=== PATIENT | female | born 1940 | race Caucasian/White ===

== ENCOUNTER 2018-07-30 09:20 | Outpatient (REF) | payer MEDICARE, OTHER, SELFPAY ==
[2018-07-30 21:47] LABS: HCT 38.1 % (36.0-46.0); HGB 13.2 g/dL (12.0-15.5); Mean Corp. HGB Concentration 34.6 g/dL (32.0-36.0); Mean Corpuscular Hemoglobin 32.4 pg (27.0-33.0); Mean Corpuscular Volume 93.6 fL (80-95); Mean Platelet Volume 10.5 fL (8.0-11.0); Platelet Count 115 x1000/uL (130-400); RBC 4.07 m/cumm (4.00-5.20); RBC Distribution Width 13.2 % (11.7-14.6); White Blood Cell Count 15.26 k/cumm (4.4-10.8)
[2018-07-30 21:59] LABS: BUN 30 mg/dL (7-18); CREATININE 0.98 mg/dL (0.55-1.02); Chloride 104 mmol/L (98-107); Estimated GFR 54.61 (mL/min/1.73m2); Glucose 90 mg/dL (70-100); Potassium 4.3 mmol/L (3.5-5.1); Sodium 140 mmol/L (136-145)
== END 2018-07-30 09:40 ==
LOC: NCHCN 09:20
PROVIDERS: PCP Nurse Practitioner Family; Visit Provider Internal Medicine
DX: C91.10 Chronic lymphocytic leukemia of B-cell type not having achieved remission (principal); I10 Essential (primary) hypertension
CPT/HCPCS: 80048; 85027

== ENCOUNTER 2018-08-03 10:03 | Outpatient (REF) | payer MEDICARE, OTHER, SELFPAY ==
--- NOTE | 2018-08-03 08:20 | SKI_PTH ---
PATIENT: Celena Alfred LOC: [facility] U#:[id number] AGE/SX: 78/F ROOM: RE08/03/[address]: Dottie Garcia : 1940 BED: DIS: 08/03/2018 SPEC #: [id number] RECD: 08/04/18 12:42 STATUS: CRISTOPHER REUlices #: [id number] STEPHANIE: 08/03/18 08:[address]: Dottie Garcia DEPT: Surgical Specimen RECD BY: Jeniffer Joseph ENTERED: 08/04/18 12:44 SP TYPE: RADHA HOLLY DR: Dalila Oh Tissues: 1 - SKIN BIOPSY(SHAVE/PUNCH) 2 - SKIN BIOPSY(SHAVE/PUNCH) Procedures: SKIN LEVEL 4 Comments: [id number]
== END 2018-08-03 10:23 ==
LOC: NCHCN 10:03
PROVIDERS: PCP Nurse Practitioner Family; Visit Provider Internal Medicine
DX: C44.529 Squamous cell carcinoma of skin of other part of trunk (principal); C44.519 Basal cell carcinoma of skin of other part of trunk; L57.0 Actinic keratosis
CPT/HCPCS: 88305

== ENCOUNTER 2024-10-22 13:11 | Outpatient (CLI) | payer MEDICARE, OTHER, SELFPAY ==
[2024-10-22 13:30] LABS: Estimated GFR 54.87 (mL/min/1.73m2)
== END 2024-10-22 13:12 | disposition home or self-care (01) ==
LOC: LBO 13:11
PROVIDERS: PCP Nurse Practitioner Family; Visit Provider Dermatology MOHS-Micrographic Surgery
DX: C44.02 Squamous cell carcinoma of skin of lip (principal); C44.321 Squamous cell carcinoma of skin of nose
CPT/HCPCS: 36415; 82565

== ENCOUNTER 2024-10-26 02:09 | Outpatient (CLI) | payer MEDICARE, OTHER, SELFPAY ==
--- NOTE | 2024-10-26 | DI.CT_ITS ---
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 TECHNIQUE: Imaging Protocol: Axial computed tomography images with coronal and sagittal reformatted images were created and reviewed. CONTRAST MATERIAL: Intravenous: Omnipaque 350 contrast volume:100 mL COMPARISON: No exams were available for comparison FINDINGS: Ventricles and Extra axial spaces: Normal in size and morphology for the patient's age. Hemorrhage: None. Cerebral parenchyma: There is no evidence of an acute territorial infarct. There are subtle areas of decreased attenuation in the white matter most consistent with chronic microvascular ischemic diseas e. Enhancement: No suspicious enhancement. [place]: Unremarkable. Midline shift: None. Brainstem/Cerebellum: Normal. Calvarium: Normal. Visualized Paranasal sinuses/Mastoids: There is opacification of several ethmoid air cells bilaterall y. There are air-fluid level seen in the maxillary sinuses bilaterally and the right sphenoid sinus. The findings may represent acute sinusitis. There is also chronic mucosal thickening in the maxill yoly sinuses bilaterally. The frontal sinuses are clear. There is fluid seen in the mastoid air cell s bilaterally. No destructive changes are seen in the mastoid air cells. IMPRESSION: 1. No evidence of intracranial metastatic disease. 2. Findings of chronic sinusitis. 3. Air-fluid levels in the maxillary sinuses and the right sphenoid sinus suggesting acute sinusitis. Unexpected findings RADIATION DOSE DELIVERED: 1,892.93mGy.cm Total DLP 1,892.93mGy.cm Total DLP DATA REPOSITORY: All CT scans at this facility are submitted to the National Radiology Data Registry (NRDR) Dose Index Registry (DIR) with the [employer] (ACR). RADIATION OPTIMIZATION: All CT scans at this facility use at least one of these dose optimization te chniques: automated exposure control; mA and/or kV adjustment per patient size (includes targeted exa ms where dose is matched to clinical indication); or iterative reconstruction.
--- NOTE | 2024-10-26 | DI.CT_ITS ---
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 TECHNIQUE: Imaging Protocol: Axial computed tomography images with coronal and sagittal reformatted images were created and reviewed. CONTRAST MATERIAL: Intravenous: Omnipaque 350 Contrast volume:100mL COMPARISON: CT CT HEAD WO/W from 10/26/2024 FINDINGS: Visualized intracranial structures: Within normal limits. Orbits and orbital soft tissues: Within normal limits. Visualized paranasal sinuses: There is opacification of several ethmoid air cells. Air-fluid levels are seen in the maxillary sinuses and right sphenoid sinus suggesting acute sinusitis. Chronic sinu s disease is also noted with mucosal thickening in the maxillary sinuses bilaterally. There is fluid seen in the mastoid air cells bilaterally. Pharynx: Within normal limits. Larynx: Within normal limits. Retropharyngeal space: Within normal limits. Parotids/submandibular: Within normal limits. Thyroid gland: The thyroid gland is enlarged and heterogeneous. There is a 1.8 x 1.4 cm solid nodul e in the midpole of the left lobe of the thyroid gland. There also appears to be a 2.1 x 1.6 cm nodu le in the inferior aspect of the left lobe. Nonemergent thyroid ultrasound is recommended for furthe r evaluation. Lymphadenopathy: There are enlarged supraclavicular lymph nodes bilaterally. The largest is on the l eft and measures 2.2 x 1.6 cm (series 4, image 70). There are enlarged lymph nodes at all levels of t he neck. The largest lymph node on the left is anterior to the carotid bifurcation and measures 1.1 x 1.8 cm (series 4, image 42). The largest on the right is adjacent to the submandibular gland and francisco javier sures 2.2 x 1.5 cm. (Series 4, image 48). Trachea: Within normal limits. There is rightward deviation of the trachea secondary to the superior mediastinal adenopathy. Lung apices: Within normal limits. Bones: Within normal limits for the patient's age. The posterior arch of C1 is incomplete which is a normal variant. Carotids/Jugular: Within normal limits. Soft tissues: There is a 1.0 transverse by 0.8 AP by 1.5 craniocaudad cm enhancing mass on the righ t lip (series 4, image 30). There is infiltration of the surrounding soft tissues. There is no osseou s involvement. Mediastinum: There is mediastinal adenopathy noted paratracheal adenopathy measuring up to 2.1 x 1.9 cm is noted. (Series 4, image 81). IMPRESSION: 1. There is a 1.0 x 0.8 x 1.5 cm enhancing mass in the right lip consistent with the patient's known carcinoma. There is no osseous involvement. 2. Extensive cervical, supraclavicular and superior mediastinal adenopathy. 3. Air-fluid level seen in the maxillary sinuses and right sphenoid sinus suggesting acute sinusitis. 4. Multinodular thyroid gland. Nonemergent thyroid ultrasound is recommended for further evaluation. Unexpected findings RADIATION DOSE DELIVERED: 1,892.93mGy.cm Total DLP 1,892.93mGy.cm Total DLP DATA REPOSITORY: All CT scans at this facility are submitted to the National Radiology Data Registry (NRDR) Dose Index Registry (DIR) with the [employer] (ACR). RADIATION OPTIMIZATION: All CT scans at this facility use at least one of these dose optimization te chniques: automated exposure control; mA and/or kV adjustment per patient size (includes targeted exa ms where dose is matched to clinical indication); or iterative reconstruction.
[2024-10-26] MEDS: Normal Saline - Diluent 50 ML VIAL IJ (14:16)
[2024-10-26] MEDS: Omnipaque 350 MG/ML 100 ML BTL IJ (14:16)
== END 2024-10-26 02:29 ==
PROVIDERS: PCP Nurse Practitioner Family; Visit Provider Dermatology MOHS-Micrographic Surgery
DX: C44.02 Squamous cell carcinoma of skin of lip (principal); C44.321 Squamous cell carcinoma of skin of nose; E04.2 Nontoxic multinodular goiter
CPT/HCPCS: 70491; 70470; J3490

== ENCOUNTER 2025-02-21 13:49 | Observation (INO) | payer MEDICARE, OTHER, SELFPAY ==
[2025-02-21] VITALS (33 sets, daily range): BP systolic 96–147; BP diastolic 37–70; PULSE 71–88; RESP 10–21; TEMP 36.6–36.9; O2SAT 95–100
--- NOTE | 2025-02-21 13:45 | RT.EKG_ITS ---
APPROVED REPORT Exam: Resting ECG Reason for Exam: dizziness Patient Location: E HR:75 bpm ECG Measurements Heart Rate 75 AXIS OK 138 P 26 QRSd 97 QRS -24 QT 393 T 108 QTc 438 Conclusion Sinus rhythm, rate 75 No interval abnormalities No STEMI Downslanting ST segments I, aVL, no priors available for comparison LVH
--- NOTE | 2025-02-21 14:15 | DI.CT_ITS ---
Exam(s) CT HEAD CERVICAL SPINE WO EXAM: CT HEAD CERVICAL SPINE WO CLINICAL HISTORY: falls, unknown head strike. TECHNIQUE: Imaging Protocol: Axial computed tomography images with coronal and sagittal reformatted images were created and reviewed COMPARISON: CT CT HEAD WO/W from 10/26/[address] NECK W from 10/26/2024 FINDINGS: Head CT Ventricles and Extra axial spaces: Normal in size and morphology for the patient's age. Hemorrhage: None. Cerebral parenchyma: No evidence of mass or acute infarct. Midline shift: None. Brainstem/Cerebellum: Normal. Calvarium: Normal. Visualized Paranasal sinuses/Mastoids: Opacification few ethmoid sinuses. Soft tissues: Unremarkable. Cervical Spine CT BONES: Vertebral body heights are maintained. Alignment is normal. There is no evidence of acute fracture. Mild degenerative disc changes and facet degenerative changes are seen . SOFT TISSUES: No paraspinal hematoma. The airway appears intact. Adenopathy again noted bilaterally. No pneumothorax is seen at the lung apices. IMPRESSION: Head CT: No acute abnormality. C-spine CT: Degenerative changes, no acute abnormality. Adenopathy is again noted in both sides of the neck. Roughly stable from prior. RADIATION DOSE DELIVERED: Total DLP DATA REPOSITORY: All CT scans at this facility are submitted to the National Radiology Data Registry (NRDR) Dose Index Registry (DIR) with the [employer] (ACR). RADIATION OPTIMIZATION: All CT scans at this facility use at least one of these dose optimization techniques: automated exposure control; mA and/or kV adjustment per patient size (includes targeted exams where dose is matched to clinical indication); or iterative reconstruction.
--- NOTE | 2025-02-21 14:15 | DI.CT_ITS ---
Exam(s) CT THORACIC LUMBAR SPINE WO EXAM: CT THORACIC LUMBAR SPINE WO CLINICAL HISTORY: fall, lower back/tailbone pain. TECHNIQUE: Imaging Protocol: Axial, coronal and sagittal images were reconstructed from the chest abdomen and pelvic CT utilizing bone algorithm. COMPARISON: No exams were available for comparison FINDINGS: Thoracic spine: Bones: No acute fractures are seen. The alignment of the spine is normal including the cervicothoracic junction. Soft tissues: TAVR. Lower thoracic and mediastinal adenopathy again noted. No large disk herniations are identified. Lumbar spine: Bones: No acute fracture is identified. Degenerative disc changes and facet degenerative changes are present. Alignment: Normal. Soft tissues: There is no large disc herniation. No paraspinal hematoma. Extensive retroperitoneal adenopathy is noted. Sigmoid diverticulosis. Left upper quadrant surgical clips. The spleen is markedly enlarged, not fully included on the exam. IMPRESSION: No acute abnormality of the thoracic or lumbar spine. Extensive retroperitoneal adenopathy. Mediastinal adenopathy. RADIATION DOSE DELIVERED: Total DLP DATA REPOSITORY: All CT scans at this facility are submitted to the National Radiology Data Registry (NRDR) Dose Index Registry (DIR) with the [employer] (ACR). RADIATION OPTIMIZATION: All CT scans at this facility use at least one of these dose optimization techniques: automated exposure control; mA and/or kV adjustment per patient size (includes targeted exams where dose is matched to clinical indication); or iterative reconstruction.
--- NOTE | 2025-02-21 14:19 | W.ED.GENAD ---
Discharge Plan Disposition Patient Disposition: Admit to [facility] Condition: Stable Discharge Details Clinical Impression: Acute prerenal azotemia, SCC (squamous cell carcinoma), face, Dehydration Primary Care Provider: Dalila Oh ED Provider: Irene Ahumada Home Meds and New Rx's Prescriptions: No Action lidocaine HCl 2 % solution 1 applic mucous membrane ONCE PRN Patient Comments: SWISH AND SPIT NEEDED, MIX 1:1:1 BENADRYL, MAALOX, AND VISCOUS LIDOCAINE) oxycodone 5 mg tablet 5 mg PO Q6H PRN Patient Comments: TAKE 1 TABLET BY MOUTH EVERY 4 HOURS NEEDED FOR PAIN (ALSO, TAKE STOOL SOFTENER EVERY DAY TO KEEP STOOLS SOFT (AND AVOID CONSTIPTATION).) hydrocodone-acetaminophen 5-325 mg tablet 1 tab PO Q6H PRN Patient Comments: TAKE ONE TO TWO TABLETS BY MOUTH EVERY 6 HOURS NEEDED FOR PAIN FOR UP TO 4 DAYS silver sulfadiazine 1 % cream 1 applic TOPICAL BID Patient Comments: APPLY TO AFFECTED AREA(S) TWO TIMES A DAY ON OPEN AREA OF SKIN pravastatin 40 mg tablet 40 mg PO DAILY valsartan-hydrochlorothiazide 320-25 mg tablet 1 tab PO DAILY HPI General Mode of arrival: ambulatory. Date/Time Provider Initiated Documentation: 02/21/25 13:55. Limitations to Documentation: no limitations. Information obtained by: patient, family and old records reviewed. 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 The patient reports that she has been trying to manage her pain at home with oxycodone and [place], as well as Magic mouthwash. She states that this helped some but she really does not have as much success in maintaining her oral intake as they helped. She does occasionally get IV fluids at infusion clinic at the cancer center. The patient reports that on Friday she was laying in bed, her family member called for her and so she sat up very quickly, got very dizzy/lightheaded and fell. She states that she landed on her bottom, does not think that she struck her head or lost consciousness. She has continued to have some low blood back/tailbone pain since then, but has been able to get up and about and walk. She feels very lightheaded if she gets up too quickly and this was the prompted for her family members to take her here for an evaluation. Related Data Home Medications ?Medication ?Instructions ?Recorded ?Confirmed hydrocodone 5 mg-acetaminophen 325 1 tab PO Q6H PRN 02/21/25 02/21/25 mg tablet lidocaine HCl 2 % mucosal solution 1 applic mucous membrane ONCE PRN 02/21/25 02/21/25 oxycodone 5 mg tablet 5 mg PO Q6H PRN 02/21/25 02/21/25 pravastatin 40 mg tablet 40 mg PO DAILY 02/21/25 02/21/25 silver sulfadiazine 1 % topical 1 applic topical BID 02/21/25 02/21/25 cream valsartan 320 1 tab PO DAILY 02/21/25 02/21/25 mg-hydrochlorothiazide 25 mg tablet Allergies Allergy/AdvReac Type Severity Reaction Status Date / Time No Known Allergies Allergy Unverified 02/21/25 15:07 General Stated Complaint: Dizzy/Sync ROSA: 3 Exam Narrative Exam Narrative: Gen: awake and alert, in no apparent distress. Appears quite thin HEENT: PERRL, EOMs full and without nystagmus. The patient's upper lip/maxillary region has several crusting lesions and pustules consistent with postradiation changes. She does have 1 area of ulceration/soreness on the inner aspect of her right buccal mucosa. She is edentulous, posterior pharynx clear. Bilateral nares are largely occluded with crust Neck: Supple, full range of motion, no observable masses Lungs: No increased work of breathing, lung sounds clear and equal bilaterally without wheezes, rhonchi, or rales. CV: Heart with regular rate and rhythm, no murmurs auscultated. Strong and symmetrical radial pulses. Abdomen: Soft, nondistended, non-tender to palpation. No rigidity, rebound tenderness, or guarding. MSK: No joint swelling, no redness. Full ROM without limitation, no external traumatic findings. Skin: No rashes or lesions to visualized skin. Normal color, warm, and dry. Neuro: Cranial nerves II-XII intact and symmetrical bilaterally. 5/5 strength in all muscle groups x4 extremities. No sensory deficits. Ambulates with steady gait. Psych: Appropriate for situation. Course Vital Signs Vital signs: Vital Signs Temperature 36.6 C 02/21/25 13:54 Pulse 83 02/21/25 13:54 Respiratory Rate 17 02/21/25 13:54 Blood Pressure 96/59 L 02/21/25 13:54 Pulse Oximetry 98 02/21/25 13:54 Temperature 36.6 C 02/21/25 13:54 Temperature Source Oral 02/21/25 13:54 Pulse 83 02/21/25 13:54 Respiratory Rate 17 02/21/25 13:54 Blood Pressure 96/59 L 02/21/25 13:54 Pulse Oximetry 98 02/21/25 13:54 Pain Level 8 02/21/25 13:54 Medical Decision Making This is an 85-year-old female patient presenting for evaluation of dizziness with standing, decreased p.o. intake, and weakness, which led to a fall 2 days ago. Differential includes but is not limited to dehydration, metabolic electrolyte derangement, kidney injury, anemia. 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 Patient does endorse an episode of diarrhea after using stool softeners for opioid related constipation, consider GI losses as a less likely source. Regarding her falls, considered intracranial hemorrhage and spine fracture, contusion especially in the tailbone region. She is reassuringly without neurodeficits to significantly increase my concern for stroke, spinal cord compression. Considered arrhythmia and ACS, patient's lightheadedness is not vertiginous in nature. Considered intracranial mass or metastasis. We will obtain IV access, and labs to include CBC, CMP, magnesium, troponin, and TSH. I will provide the patient with a liter of IV fluids as well as a gram of Tylenol and 5 mg of oxycodone liquid. I obtained and interpreted the patient's EKG, which shows a sinus rhythm with LVH, nonspecific ST segment changes in 1 and aVL, no STEMI and no priors available for comparison. - I reviewed the patient's laboratory studies, which showed no leukocytosis, though she does have an anemia to 10.6 and a thrombocytopenia of 113. Chemistry panel reveals no electrolyte derangements, but the patient does have a markedly elevated BUN to 95 and a creatinine of 1.8. Magnesium is slightly elevated at 2.8, no liver dysfunction. TSH is within normal limits, initial troponin is negative. CT scans reviewed by myself, no evidence of intracranial hemorrhage or spine fracture. She does have evidence of lymphadenopathy, and would benefit from ongoing follow-up with her cancer facility for metastatic disease. Given the prerenal AVIS and the marked dehydration, I feel that this patient would benefit from admission to the hospital for further rehydration. The hospitalist has graciously accepted this patient for admission to their service, and she was provided with Aquaphor and Magic mouthwash for pain and comfort of her face and oral lesions. Patient remained in hemodynamically improved condition while under my care. Irene Ahumada MD [facility] All Active Problems (Updated 02/21/25 @ 16:48 by Kwaku Aparicio MD) Pharyngitis (Acute) Weight loss (Acute) Dehydration (Acute) SCC (squamous cell carcinoma), face (Acute) Acute prerenal azotemia (Acute) Social History Smoking risk assessment performed?: No
[2025-02-21] MEDS: oxyCODONE 5 MG/5 ML CUP PO (14:50)
[2025-02-21] MEDS: Lactated Ringers 1,000 ML 1000 ML IV (14:58)
[2025-02-21] MEDS: ACETAMINOPHEN 1,000 MG/100 ML BAG 400 MG IVPB (14:59)
[2025-02-21 15:20] LABS: Abs Immature Grans 0.02 10^3/uL (0.0-0.06); HCT 31.1 % (36.0-46.0); HGB 10.6 g/dL (11.2-15.7); Immature Grans % 0.4 %; MCH 32.0 pg (27.0-33.0); MCHC 34.1 % (32.0-36.0); MCV 94 fL (80-95); MPV 10.4 fL (8.0-11.0); Platelet Count 113 10^3/uL (130-400); RBC 3.31 10^6/uL (3.93-5.22); RDW 14.8 % (11.7-14.6); RDW-SD 50.4 fL; WBC 5.71 10^3/uL (4.4-10.8)
[2025-02-21 15:22] LABS: ALT 22 U/L (14-59); AST 33 U/L (15-37); Albumin 3.3 g/dL (3.4-5.0); Alkaline Phosphatase 63 U/L (46-116); Anion Gap 11.2 mmol/L (3-11); Bilirubin, Total 0.8 mg/dL (0.2-1.0); CO2 27.8 mmol/L (21.0-32.0); Calcium 8.7 mg/dL (8.5-10.1); Chloride 99 mmol/L (98-107); Estimated GFR 26.93 (mL/min/1.73m2); Glucose 107 mg/dL (74-106); Magnesium 2.8 mg/dL (1.8-2.4); Potassium 4.1 mmol/L (3.5-5.1); Sodium 138 mmol/L (136-145); Total Protein 6.2 g/dL (6.4-8.2)
[2025-02-21 15:24] LABS: BUN 95 mg/dL (7-18)
[2025-02-21 15:31] LABS: TSH 3.35 uIU/mL (0.36-3.74); Troponin I 48 ng/L (<or=51)
[2025-02-21 16:34] LABS: Troponin I 44 ng/L (<or=51)
[2025-02-21] MEDS: Magic Mouthwash 119 ML BTL 10 ML PO (16:36)
--- NOTE | 2025-02-21 16:41 | W.PM.HP.N ---
Date of service: 02/21/25 Time of Service: 16:42 Assessment and Plan Assessment and plan (1) Acute prerenal azotemia: Status: Acute Assessment and plan: Will continue with fairly aggressive rehydration normal saline at 175. (2) Dehydration: Status: Acute Assessment and plan: As above (3) SCC (squamous cell carcinoma), face: Status: Acute Assessment and plan: Patient has completed her treatment regimen but unfortunately has significant radiation side effects. (4) Weight loss: Status: Acute Assessment and plan: Discussed with general surgery in the a.m. alternative means of feeding. (5) Pharyngitis: Status: Acute Assessment and plan: Will continue with Magic mouthwash will add Dilaudid and monitor for improvements. DVT prophylaxis with Lovenox. 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 Presents with approximately 2 weeks of worsening oral pain to the point where she cannot swallow either liquids or solids. While she was in the ED she was noted to have significant dehydration and was subsequently admitted to the hospital service for further evaluation and treatment. Patient also sustained a fall approximately a week ago. Because of this head CT and thoracic lumbar CTs were performed. The CT scans did show adenopathy but were otherwise within normal limits. In regards to her laboratory data her hemoglobin 10.6 and hematocrit 31.1. This has to be viewed in light of her severe dehydration is probably much lower. Patient also has mild thrombocytopenia with a platelet count of 113. Patient's BUN and creatinine are 95 and 1.8. In July 2018 her BUN was 30 and her creatinine was 1.0. Patient states that she has never been given the opportunity for alternate means of nutrition including panic versus MG versus parenteral. Patient will be admitted to the hospital service for further evaluation and treatment. Review of Systems All systems reviewed & are unremarkable except as noted in HPI and below PFSH All Active Problems (Updated 02/21/25 @ 16:48 by Kwaku Aparicio MD) Pharyngitis (Acute) Weight loss (Acute) Dehydration (Acute) SCC (squamous cell carcinoma), face (Acute) Acute prerenal azotemia (Acute) Social History Smoking risk assessment performed?: No Meds Allergies and Home Medications Allergies Allergy/AdvReac Type Severity Reaction Status Date / Time No Known Allergies Allergy Unverified 02/21/25 15:07 Home Medications ?Medication ?Instructions ?Recorded ?Confirmed ?Type hydrocodone 5 mg-acetaminophen 325 1 tab PO Q6H PRN 02/21/25 02/21/25 History mg tablet lidocaine HCl 2 % mucosal solution 1 applic mucous membrane ONCE PRN 02/21/25 02/21/25 History oxycodone 5 mg tablet 5 mg PO Q6H PRN 02/21/25 02/21/25 History pravastatin 40 mg tablet 40 mg PO DAILY 02/21/25 02/21/25 History silver sulfadiazine 1 % topical 1 applic topical BID 02/21/25 02/21/25 History cream valsartan 320 1 tab PO DAILY 02/21/25 02/21/25 History mg-hydrochlorothiazide 25 mg tablet Exam Narrative Exam Narrative: HEENT- patient does have approximately 4 x 3 cm lesion on the right side of her face including her lips. She does have significant drying of her mucous membranes. She did have significant erythema in her pharyngeal area. Neck-no lymphadenopathy no JVD or thyromegaly Cardiovascular-regular rate rhythm no murmur rubs or gallops Lungs-clear to auscultation bilaterally with good air exchange Abdomen-soft nontender nondistended Extremities-no sinus clubbing or edema Neurologic-cranial nerves II through XII intact as tested reflexes in upper EXTR normal as tested Psych-alert and oriented x 3 no apparent distress Results Labs 02/21/25 14:48 02/21/25 14:48 Labs: Laboratory Results - last 24 hr 02/21/25 02/21/25 14:48 16:09 WBC 5.71 RBC 3.31 L Hgb 10.6 L Hct 31.1 L MCV 94 MCH 32.0 MCHC 34.1 RDW 14.8 H Plt Count 113 L MPV 10.4 Immature Gran % 0.4 Neutrophils % 35.6 Lymphocytes % 52.2 Monocytes % 10.0 Eosinophils % 1.6 Basophils % 0.2 Nucleated RBC % 0.0 Absolute Neutrophils 2.04 Absolute Lymphocytes 2.98 Absolute Monocytes 0.57 Absolute Eosinophils 0.09 Absolute Basophils 0.01 Sodium 138 Potassium 4.1 Chloride 99 Carbon Dioxide 27.8 Anion Gap 11.2 H BUN 95 H* Creatinine 1.8 H Est GFR (CKD-EPI 2021) 26.93 Glucose 107 H Calcium 8.7 Magnesium 2.8 H Total Bilirubin 0.8 AST 33 ALT 22 Alkaline Phosphatase 63 Troponin I 48 44 Total Protein 6.2 L Albumin 3.3 L TSH 3.35 Last Vital Signs Temp 36.6 C 02/21/25 13:54 Pulse 83 02/21/25 13:54 Resp 17 02/21/25 13:54 BP 96/59 L 02/21/25 13:54 Pulse Ox 98 02/21/25 13:54 Time Spent Time spent with Patient: 40-54 minutes Time was spent: preparing to see the patient(eg.review tests), obtaining and/or reviewing separately otained hiistory, ordering medications,tests, procedures, referring, communicating with other health long term care administrator, indepentently interpreting results, counseling the patient and care coordination
[2025-02-21] MEDS: Magic Mouthwash 119 ML BTL MM ×4 (17:45→22:37)
[2025-02-21] MEDS: Normal Saline 1,000 ML 175 ML IV (18:30)
[2025-02-21] MEDS: Enoxaparin 40 MG/0.4 ML SYR SC (18:32)
[2025-02-21 18:36] LABS: Troponin I 49 ng/L (<or=51)
[2025-02-21 19:28] LABS: Glucose Negative (Negative)
[2025-02-21] MEDS: ACETAMINOPHEN 500 MG/50 ML BAG 200 MG IVPB (19:53)
[2025-02-21] MEDS: HYDROmorphone 2 MG/ML SYR IVP (22:37)
[2025-02-22] MEDS: Normal Saline 1,000 ML 175 ML IV ×4 (00:45→19:25)
[2025-02-22] MEDS: Magic Mouthwash 119 ML BTL MM ×5 (05:52→19:15)
[2025-02-22] MEDS: HYDROmorphone 2 MG/ML SYR IVP ×3 (05:54→19:16)
[2025-02-22 06:09] LABS: Abs Immature Grans 0.01 10^3/uL (0.0-0.06); HCT 32.2 % (36.0-46.0); HGB 10.9 g/dL (11.2-15.7); Immature Grans % 0.2 %; MCH 32.6 pg (27.0-33.0); MCHC 33.9 % (32.0-36.0); MCV 96 fL (80-95); MPV 9.6 fL (8.0-11.0); RBC 3.34 10^6/uL (3.93-5.22); RDW 14.8 % (11.7-14.6); RDW-SD 51.8 fL; WBC 5.28 10^3/uL (4.4-10.8)
[2025-02-22 06:25] LABS: ALT 21 U/L (14-59); AST 31 U/L (15-37); Albumin 3.3 g/dL (3.4-5.0); Alkaline Phosphatase 67 U/L (46-116); Anion Gap 8.2 mmol/L (3-11); BUN 72 mg/dL (7-18); Bilirubin, Total 0.7 mg/dL (0.2-1.0); CO2 28.8 mmol/L (21.0-32.0); Calcium 8.3 mg/dL (8.5-10.1); Chloride 104 mmol/L (98-107); Estimated GFR 48.63 (mL/min/1.73m2); Glucose 91 mg/dL (74-106); Potassium 3.9 mmol/L (3.5-5.1); Sodium 141 mmol/L (136-145); Total Protein 6.1 g/dL (6.4-8.2)
[2025-02-22 06:35] VITALS: BP 106/48; PULSE 82; RESP 12; TEMP 37; O2SAT 96
[2025-02-22 06:41] LABS: Platelet Count 95 10^3/uL (130-400)
[2025-02-22 06:42] LABS: RBC Morphology Normal
--- NOTE | 2025-02-22 07:46 | PDOC.CMIN ---
Date of service: 02/22/25 Time of Service: 10:46 Care Management Initial Assmt Initial Assessment Reason for Hospitalization: Severe Dehydration Functional Status/Living Situation Patient Presentation: Celena was lying in bed and awake when CM met with her. Celena presented to the ED yesterday afternoon presenting for evaluation of orthostasis, weakness, and concern for dehydration. CM requested a palliative care consult to support symptom management?specifically addressing her pain and decreased oral intake?as well as to explore goals of care as the patient was reported to have undergone 330 rounds of radiation. Celena was pleasant and engaged openly in conversation. She confirmed that she has advance directives in place and stated that they continue to reflect her current wishes. She has a PT consult and will work with them today. Celena reports living independently in a home attached to her daughter Breann?s residence (H. [phone] C. [phone]). Her other daughter, Christine ([phone]), resides on the same property. The patient states she is independent with her ADL's and describes her family as very supportive. She is not currently involved with any community-based support services but expressed interest in obtaining a Life Alert system. CM provided informational pamphlets on [employer], EMIL, and LifeLine, which the patient accepted with interest. Celena receives oncology care at the [facility] in [facility], where she is followed by Dr. Butts and Dr. Ramirez. She reported having a home pain management regimen prescribed by her primary care provider, though she noted it has been largely ineffective. At this time, she is not receiving any Home Health services and expressed a desire to remain without them if possible. However, PT has recommended Home Health PT services. CM will continue to follow. Town of Residence: [place] Significant Other/Family: Local ( daughters and her live in the same property and son lives out of the area ) Natural Supports: Children Employment Status: Retired (She worked at a [employer] ) Instrumental Activities of Daily Living (ADLs): Independent Medications Medication Management: No Issues/Barriers identified Physical Functioning/Mobility Assistive Device: FWW Advance Directives Advance Directives: Do you have an Advance Directive: Y 08/10/14, 11:02 AD On File at [facility]: Y 03/16/14, 14:21 Date Asked 02/21/25 Today, 10:55 AD Date Reviewed 02/21/25 02/21/25, 13:58 COLST On File at [facility] COLST Date Scanned Code Status Resuscitation Status Full Code Portal Pt does not currently have a portal and education provided: Yes Insurance Coverage/Financial Issues Insurance: Medicare Part A & B - [id number] 4 Life MCR Supplement - [id number] Care Team Visit Care Team Role Provider Type Dalila Oh Primary Care Provider NON-[facility] STAFF PHYSICIAN InPatient Yao Poncewilmar Other Providers OTHER Irene Ahumada MD Emergency Provider [facility] STAFF PHYSICIAN Kwaku Aparicio MD Admit Provider [facility] STAFF PHYSICIAN Attending Provider Discharge Potential Discharge Needs: PT Evaluation and PCP F/U Appt Anticipated Barriers to Discharge: Medical Status Patient/Family Education Needs: Review discharge instructions, discuss Ask Me Three Transportation: Private vehicle Plan: Anticipate Celena will be discharged home once medically ready, possible with new service; Awaiting PT recommendation. It is recommended she follow up with her community providers and continue per her plan of care. Celena will transport via private vehicle by one of her children. CM will continue to follow. Social Determinants of Health Screening Will the Patient Participate in the Screening?: Declined to provide Do you worry about having a steady place to live?: choose not to answer PFSH All Active Problems (Updated 02/22/25 @ 09:35 by Kwaku Aparicio MD) Hypotension (Acute) Pharyngitis (Acute) Weight loss (Acute) Dehydration (Acute) SCC (squamous cell carcinoma), face (Acute) Acute prerenal azotemia (Acute) Social History Smoking/Tobacco Use Status: Former Tobacco Use Tobacco: How many years used: 4 Smoking risk assessment performed?: Yes Alcohol Intake: current Alcohol Intake frequency: 0-2 drinks per day Alcohol type: hard liquor Substance use type: does not use Details: Sometimes 3 with guests Housing: house Do you feel safe at home: Yes Do you feel safe in your relationship?: Yes Readmission Within the Past 30 Days Yes or No: No
[2025-02-22 07:58] VITALS: BP 91/42; PULSE 72; RESP 14; TEMP 36.7; O2SAT 96
[2025-02-22] MEDS: Silver sulfaDIAZINE 1% 25 GM TUBE TP ×2 (08:49→19:17)
[2025-02-22] MEDS: Lidocaine 5% Patch 1 PATCH TP (08:49)
[2025-02-22] MEDS: Normal Saline Flush 10 ML SYR IVP ×2 (08:50→19:16)
--- NOTE | 2025-02-22 09:32 | W.PM.PROGNOT ---
Date of Service Date of service: 02/22/25 Time of Service: 09:32 Assessment and Plan Assessment and plan (1) Acute prerenal azotemia: Status: Acute Assessment and plan: Will continue with fairly aggressive rehydration normal saline at 175. 02/22/25 renal fx has improved, cw rehydration (2) Dehydration: Status: Acute Assessment and plan: As above (3) SCC (squamous cell carcinoma), face: Status: Acute Assessment and plan: Patient has completed her treatment regimen but unfortunately has significant radiation side effects. (4) Weight loss: Status: Acute Assessment and plan: Discussed with general surgery in the a.m. alternative means of feeding. 02/22/25 placed a consult to through [employer] and formal consult in [employer]. Awaiting response (Dr Soto listed urgent care nurse practitioner) (5) Pharyngitis: Status: Acute Assessment and plan: Will continue with Magic mouthwash will add Dilaudid and monitor for improvements. DVT prophylaxis with Lovenox. (6) Hypotension: Status: Acute Assessment and plan: cw ivf and monitor Subjective Subjective Interval history since last seen: Pt states that she feels better. Ambivalent about GS consult Exam Narrative Exam Narrative: HEENT- patient does have approximately 4 x 3 cm lesion on the right side of her face including her lips. She does have significant drying of her mucous membranes. She did have significant erythema in her pharyngeal area. Neck-no lymphadenopathy no JVD or thyromegaly Cardiovascular-regular rate rhythm no murmur rubs or gallops Lungs-clear to auscultation bilaterally with good air exchange Abdomen-soft nontender nondistended Extremities-no sinus clubbing or edema Neurologic-cranial nerves II through XII intact as tested reflexes in upper EXTR normal as tested Psych-alert and oriented x 3 no apparent distress Objective Last Vital Signs Temp 36.7 C 02/22/25 07:58 Pulse 72 02/22/25 07:58 Resp 14 02/22/25 07:58 BP 91/42 L 02/22/25 07:58 Pulse Ox 96 02/22/25 07:58 Laboratory Results - last 24 hr 02/21/25 02/21/25 02/21/25 14:48 16:09 18:05 WBC 5.71 RBC 3.31 L Hgb 10.6 L Hct 31.1 L MCV 94 MCH 32.0 MCHC 34.1 RDW 14.8 H Plt Count 113 L MPV 10.4 Immature Gran % 0.4 Neutrophils % 35.6 Lymphocytes % 52.2 Monocytes % 10.0 Eosinophils % 1.6 Basophils % 0.2 Nucleated RBC % 0.0 Absolute Neutrophils 2.04 Absolute Lymphocytes 2.98 Absolute Monocytes 0.57 Absolute Eosinophils 0.09 Absolute Basophils 0.01 RBC Morphology Sodium 138 Potassium 4.1 Chloride 99 Carbon Dioxide 27.8 Anion Gap 11.2 H BUN 95 H* Creatinine 1.8 H Est GFR (CKD-EPI 2020) 26.93 Glucose 107 H Calcium 8.7 Magnesium 2.8 H Total Bilirubin 0.8 AST 33 ALT 22 Alkaline Phosphatase 63 Troponin I 48 44 49 Total Protein 6.2 L Albumin 3.3 L TSH 3.35 Urine Color Urine Clarity Urine pH Ur Specific Munger Urine Protein Urine Ketones Urine Blood Urine Nitrite Urine Bilirubin Urine Urobilinogen Ur Leukocyte Esterase Urine Glucose 02/21/25 02/22/25 19:19 06:00 WBC 5.28 RBC 3.34 L Hgb 10.9 L Hct 32.2 L MCV 96 H MCH 32.6 MCHC 33.9 RDW 14.8 H Plt Count 95 L MPV 9.6 Immature Gran % 0.2 Neutrophils % 27.6 Lymphocytes % 62.3 Monocytes % 8.0 Eosinophils % 1.7 Basophils % 0.2 Nucleated RBC % 0.0 Absolute Neutrophils 1.46 Absolute Lymphocytes 3.29 Absolute Monocytes 0.42 Absolute Eosinophils 0.09 Absolute Basophils 0.01 RBC Morphology Normal Sodium 141 Potassium 3.9 Chloride 104 Carbon Dioxide 28.8 Anion Gap 8.2 BUN 72 H Creatinine 1.1 H Est GFR (CKD-EPI 2020) 48.63 Glucose 91 Calcium 8.3 L Magnesium Total Bilirubin 0.7 AST 31 ALT 21 Alkaline Phosphatase 67 Troponin I Total Protein 6.1 L Albumin 3.3 L TSH Urine Color Yellow Urine Clarity Clear Urine pH 5.5 Ur Specific Munger 1.020 Urine Protein Trace Urine Ketones Negative Urine Blood Negative Urine Nitrite Negative Urine Bilirubin Small H Urine Urobilinogen 0.2 Ur Leukocyte Esterase Negative Urine Glucose Negative PAWSS Have you Been Recently Intoxicated or Drunk Within the Last 30 days?: No Have you Ever Experienced Previous Episodes of Alcohol Withdrawal?: No Have you ever Experienced Withdrawal Seizures?: No Have you ever Experienced Delirium Tremens(DT)s?: No Have you ever undergone Alcohol Rehabilitation Treatment (i.e, inpt ot outpatient treatment programs)?: No Have you ever Experienced Blackouts?: No Have you ever Combined Alcohol with other Downers within the last 90 days?: No Have you ever Combined Alcohol with any other Substance of Abuse during the last 90 days?: No Positive Blood Alcohol level on Presentation? [PCS.BAL]: No Evidence of Increased Autonomic Activity (i.e. HR>120, tremor, sweating, agitation, nausea)?: No Result: 0 Time Spent with Patient Time Spent with Patient: 25-34 minutes Time was spent: preparing to see the patient(eg.review tests), obtaining and/or reviewing separately otained hiistory, ordering medications,tests, procedures, referring, communicating with other health professional healthcare representative, indepentently interpreting results, counseling the patient and care coordination
--- NOTE | 2025-02-22 10:54 | TELEFU_ITS ---
Date of service: 02/22/25 Time of Service: 10:54 Nutrition Note NOTE: Visited with Celena for initial nutrition assessment. She was admitted ~18 hours ago with acute prerenal azotemia and dehydration. She has completed her radiation tx for squamous cell carcinoma with resulting facial radiation lesions and pharyngitis. Her facial and oral pain have significantly limited her oral intake - during our interview she reports only sips of water over the last 5 days. She reports usually maintaining a body weight of 135lbs up until 1 month ago. She currently is 116lbs, which results in a 14% loss of body weight over a month's time. She is ordered for a liquid diet - no acidic foods/bevs and can have anything liquidized and drinkable from mug according to what Celena says she can tolerate currently. She did well and enjoy the cream of chix soup last night. We will work with things like thin cream of wheat in mug with sweetener, blended soups, any products like yogurt and cottage cheese and such. Celena finds most attempts at oral intake extremely uncomfortable and it appears this is likely to continue - providers are having conversations to see if she will be open to artificial nutrition support, but at this time sounds like she is leaning against it. Labs: Hgb/Hct 10.9/32.2 today, BUN/CR 72/1.1 today, calcium 8.3 today, Mag 2.8 today, total protein and albumin labs 6.1/3.3 today. Estimated energy needs: 1365kcals ([id number]) with 1500 or more considered a good goal for slow weight gain. 63g-80g protein (1.2-15g/kg) and ~1584mL fluid (30mL/kg). Nutrition Focused Physical Exam: Moderate to severe orbital fat pat loss, moderate SQ fat loss to buccal fat pads, axillary/rib area and triceps. Mild muscle wasting to temporalis, quadriceps and gastrocnemius. Moderate muscle wasting palpated in calavicular and shoulder areas (deltoids/pectoralis/deltoids). Severe muscle wasting to interosseous muscles. tenting of skin along dorsum of wrist also conguent with dehydration/collagen breakdown. Nutrition Dx: Severe Malnutrition (E43) related to inadequate oral protein- energy intake in the setting of acute disease/injury (status post multiple radiation treatments) as evidenced by patient meeting <50% of estimated energy requirements for more than 5 days, demonstrating a >5% loss of body weight (14%) over 1 month's time, and finding predominant moderate to severe body fat and muscle mass losses as described in the NFPE. Nutrition Intervention: Will continue to offer appropriate textures and types of food patient tends to tolerate better. Will send Boost ONS at meals and work with patient on trials of other higher protein/kcal ONS options we have in the kitchen to help determine tolerated/accepted options. With patient demonstrating on-going risk for malnutrition, artificial feedings would be indicated at this time but will defer to patient wishes. Monitoring: Will continue to monitor weight, oral intake, nutrition-related labs and ONS toleration/acceptance. Time Spent in Nutritional Counseling and Treatment: 30 min
--- NOTE | 2025-02-22 11:00 | PT.INIE ---
PT Notes Visit Reasons: Severe Dehydration Physical Therapy Inpatient Initial Evaluation Date: 02/22/2025 Referring Doctor: Kwaku Aparicio MD PT Orders: PT CONSULT: Eval/Treat Precautions: Fall. Standard. Activity as tolerated. 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 Patient presented to the ED on 02/21/2025 with complaints of worsening lightheadedness, generalized weakness, and dehydration. Patient also fell off bed when she tried to stand up and got dizzy on 02/19/2025 with report of increased low back pain since fall. Patient is admitted for management of acute prerenal azotemia, dehydration, late effects of SCC, and pharyngitis. PMHX: All Active Problems (Updated 02/21/25 @ 16:48 by Kwaku Aparicio MD) Pharyngitis (Acute) Weight loss (Acute) Dehydration (Acute) SCC (squamous cell carcinoma), face (Acute) Acute prerenal azotemia (Acute) Social History/Home Situation: Lives alone. Did not use any ambulatory device. Independent with all ADLs. Equipment Owned/DME: None Subjective: Continues to complain of pain in mouth and upper lip. Bothered by her inability to move her bowels since admission. Agreeable to working with PT. Objective: General Observation: Squamous cell carcinoma of lip and face seen Mental Status: Alert and oriented as to person, place, time, and purpose. Able to pay attention, focus, and respond appropriately. Pain: []/10 in [] [] Vital Signs: [] ROM: Right Upper Extremity: Shoulder Flexion WFL. Shoulder abduction WFL. Elbow flexion WFL. Wrist flexion WFL. Functional opening and closing of hand WFL. Left Upper Extremity: Shoulder Flexion WFL. Shoulder abduction WFL. Elbow flexion WFL. Wrist flexion WFL. Functional opening and closing of hand WFL. Right Lower Extremity: Hip flexion WFL. Hip abduction WFL. Knee flexion WFL. Ankle dorsiflexion WFL. Ankle plantarflexion WFL. Left Lower Extremity: Hip flexion WFL. Hip abduction WFL. Knee flexion WFL. Ankle dorsiflexion WFL. Ankle plantarflexion WFL. Strength: Right Upper Extremity: Shoulder flexors 4-/5. Shoulder abductors 4-/5. Elbow flexors 4-/5. Elbow extensors 4-/5. Cutting Pressman strong. Left Upper Extremity: Shoulder flexors 4-/5. Shoulder abductors 4-/5. Elbow flexors 4-/5. Elbow extensors 4-/5. Cutting Pressman strong. Right Lower Extremity: Hip flexors 4-/5. Hip abductors 4-/5. Knee flexors 4-/5. Knee extensors 4-/5. Ankle dorsiflexors 4-/5. Ankle plantarflexors 4-/5. Left Lower Extremity: Hip flexors 4-/5. Hip abductors 4-/5. Knee flexors 4-/5. Knee extensors 4-/5. Ankle dorsiflexors 4-/5. Ankle plantarflexors 4-/5. Bed Mobility/Transfers: Rolling independent Supine to sit independent Sit to supine independent Sit to stand stand by assist with FWW Stand to sit stand by assist with FWW Bed to toilet stand by assist with FWW Toilet to bed stand by assist with FWW Bed to reclining chair stand by assist with FWW Gait: Covered a distance of 100 feet using front wheeled walker with reciprocal heel-toe gait pattern with age-related reduction in gait speed. Verbalized fatigue at end of activity with request for seated rest. Balance: Static Sitting: Normal Dynamic Sitting: Normal Static Standing: Fair Dynamic Standing: Fair 4-Stage balance Test: Feet together 10 seconds Semi tandem <10 sedonds Full tandem deferred One-legged stance deferred Special Tests: Mobility Limitations Standardized Measure [facility] 6 clicks Basic Mobility Inpatient Short Form: Raw Score: 22 CMS Score: 21% deficit Informed Consent/Education: Patient was instructed in purpose of PT consult and plan of care. Agreeable to proceed with established PT POC to achieve personal goals. Assessment: Patient continues to have generalized weakness from admitting diagnoses with limited distance covered of 100 feet using the front-wheeled walker. Inability to have a bowel movement negatively impacted today's performance with two failed attempts at defecation twice during this session. Still limited with oral intake but with no diet restrictions. Will plan to try unassisted ambulation as strength gradually improves to facilitate return to OF. No report of back pain throughout session. Denied lightheadedness. Patient presents with clinical signs and symptoms consistent with current/admitting diagnoses that have resulted to mobility limitations, gait instability, generalized weakness, and overall ADL decline as demonstrated by the following impairment level findings: 1. Decreased strength to B UE/LE major muscle groups 2. Impaired sitting/standing balance 3. Impaired activity tolerance Impairments are contributing to the following functional limitations: 1. Difficulty with ambulation without assistive device 2. Increased completion time for mobility ADL performance 3. Increased risk for falls Patient is assessed as a 78503 moderate complexity based on the following: History: 85-year-old female with past medical history as indicated above Examination: Demonstrable impairment in strength, balance, and mobility level with underlying impairments and functional limitations as exhibited above as well as deficit score of 21% utilizing the [facility] Mobility Inpatient Short Form Presentation: Evolving Decision Makin moderate complexity Goals: Goals X1 week 1. Supine-Sit independent 2. Sit-Supine independent 3. Sit-Stand independent 4. Stand-Sit independent 5. Bed-Chair independent 6. Chair-Bed independent 7. Independent gait on level surface with use of nodevice for at least 150 feet without report of pain nor dyspnea 8. Independent stair negotiation while holding onto 1 rail for at least 3 steps without report of pain nor dyspnea 9. Independent with home exercise program 10. Good static and dynamic standing balance/tolerance Plan of Care/Treatment Plan: 1-2x/day, 7 days/week x 1 week. Plan of care has been reviewed with the ELECTRIC SWITCH REPAIRER providing the service under Physical Therapy direction. Initiate Physical Therapy intervention for pain management as needed, strengthening, bed mobility, transfers, gait, stairs, balance training, and use of assistive device. DISCHARGE RECOMMENDATIONS: PT TREATMENT CODE/TIME: 60527 x 20 minutes for 1 unit, 91211 x 11 minutes for 1 unit (11:00?11:31). Thank you for the opportunity to participate in the care of this patient. Lydia Thornton PT, DPT, CLT [facility] [place], [place]
[2025-02-22] MEDS: ACETAMINOPHEN 500 MG/50 ML BAG 100 MG IVPB (13:06)
--- NOTE | 2025-02-22 13:53 | PHACLINREV_ITS ---
Pharmacy Admission Review Admission Clinical Review Admission Pharmacy Review: Hypotension (Acute) Pharyngitis (Acute) Weight loss (Acute) Dehydration (Acute) SCC (squamous cell carcinoma), face (Acute) Acute prerenal azotemia (Acute) No Known Allergies Allergy (Unverified 02/21/25 15:07) Resuscitation Status DNR/DNI Height 5 ft 4 in Weight 52.8 kg Pharmacy Admission Review Renal Dosing Renal Dosing: BUN 72 mg/dL (7-18) H 02/22/25 06:00 Creatinine 1.1 mg/dL (0.55-1.02) H 02/22/25 06:00 Medications needing adjustments: Reviewed (Patient's creatinine has improved si gnificantly from 1.8 to 1.1mg/dL. Currently, Crcl of 29.75ml/min on borderline for lovenox prophylaxis, <30ml/min should be dosed 30mg daily. Will keep an eye on Crcl for one more day, if no further improvement, current dose of 40mg Q24H will be adjusted to 30mg) Anticoagulation Anticoagulation: Hgb 10.9 g/dL (11.2-15.7) L 02/22/25 06:00 Hct 32.2 % (36.0-46.0) L 02/22/25 06:00 Plt Count 95 10^3/uL (130-400) L 02/22/25 06:00 Creatinine 1.1 mg/dL (0.55-1.02) H 02/22/25 06:00 DVT Prophylaxis: Reviewed Medications: Enoxaparin Relevant Labs Relevant Labs: Sodium 141 mmol/L (136-145) 02/22/25 06:00 Potassium 3.9 mmol/L (3.5-5.1) 02/22/25 06:00 Chloride 104 mmol/L (98-107) 02/22/25 06:00 Magnesium 2.8 mg/dL (1.8-2.4) H 02/21/25 14:48 BUN of 72mg/dL still very high due to dehydration Magnesium high as well but other electrolytes are within normal limits DM Control DM Control: No record of DM in pt's H&P Cardiac Review Cardiac Review: Blood Pressure 91/42 Blood Pressure 106/48 Troponin I 49 ng/L (<or=51) 02/21/25 18:05 BP, HR, EF%: Reviewed ( ) QTc Review QTc: Reviewed Home Meds Home Med List reviewed: Reviewed Relevent Home Meds Not ordered & why?: All relevant home meds ordered with the exception of valsartan-hydrochlorothiazide 320/25 combination. Pt still hypotensive Current Meds Current Medication Order Review: Reviewed Comments: Monitor BP, Crcl and Magnesium
--- NOTE | 2025-02-22 14:29 | PTTR_ITS ---
PT Notes Visit Reasons: Severe Dehydration Physical Therapy Inpatient Treatment Note Date: 02/22/2025 Precautions: Fall. Standard. Activity as tolerated. Subjective: Continues to complain of pain in mouth and upper lip. has ot had a bowel movement since this morning. Nurse Joby palmer. Objective: General Observation: Squamous cell carcinoma of lip and face seen Mental Status: Alert and oriented as to person, place, time, and purpose. Able to pay attention, focus, and respond appropriately. Pain: R upper lip pain at 3-/10 Vital Signs:Closely monitoerd by nursing staff Bed Mobility/Transfers: Rolling independent Supine to sit independent Sit to supine independent Sit to stand stand by assist with FWW Stand to sit stand by assist with FWW Bed to toilet stand by assist with FWW Toilet to bed stand by assist with FWW Bed to reclining chair stand by assist with FWW Gait: Covered a distance of 150 feet using front wheeled walker with reciprocal heel- toe gait pattern with age-related reduction in gait speed. Verbalized fatigue at end of activity with request for seated rest. Stairs: Negotiated 6 x 4 -inch steps and 4 x 6-inch steps while holding onto B rails with stand by assist. Mild shortness of breath resolved with rest. Balance: Static Sitting: Normal Dynamic Sitting: Normal Static Standing: Fair Dynamic Standing: Fair Assessment: Performed more and for longer compared to this morning covering a total distance of 100 feet more than earlier today. Patent was also able to navigate the steps without undue fatigue. [place] more comfortable with use of walker on level surfaces. Patient will continue to benefit from functional mobility training, strengthening, and balance training as tolerated to reduce fall risk at home. Plan of Care/Treatment Plan: 1-2x/day, 7 days/week x 1 week. Plan of care has been reviewed with the BEHAVIORAL HEALTH CARE COORDINATOR providing the service under Physical Therapy direction. Initiate Physical Therapy intervention for pain management as needed, strengthening, bed mobility, transfers, gait, stairs, balance training, and use of assistive device. DISCHARGE RECOMMENDATIONS: PT TREATMENT CODE/TIME: 17870 x 41 minutes for 1 unit (14:29?15:10).
[2025-02-22 15:41] VITALS: BP 101/48; PULSE 74; RESP 14; TEMP 36.9; O2SAT 100
--- NOTE | 2025-02-22 16:27 | SCONE_ITS ---
Date of service: 02/22/25 Time of Service: 16:28 Assessment and Plan Assessment and plan (1) SCC (squamous cell carcinoma), face: Status: Acute Assessment and plan: -continue local wound care -magic mouth wash -prn pain meds (2) Dehydration: Status: Acute Assessment and plan: -continue IV fluid today -continue oral hyrdation -continue nutritional supplements -recommend calorie count prior to discharge to ensure patient is tolerating sufficient PO intake -trend labs discussed possible feeding tubes with patient including nasal dobhoff and G tube. nasal tube not a good option for patient due to nasal radiation. patient has normal mouth opening and oral lesions appear resolved, so PEG is an option. nephrectomy may have been from transabdominal approach but was minimally invasive so surgical G tube still feasible. 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 Patient finished radiation 1 week ago. She developed oral ulcers in the interim making it difficult to swollow and leading to dehydration. Patient only has right kidney following left nephrectomy 2004 for cancer. Pain and ulcers improved with magic mouth wash. Able to drink and swallow without issues today. Denies CP, SOB, fevers, chills. BUN and Cr improving Fell a couple days ago. Dizzy upon standing after waking up on the couch. Denies back pain, headaches, blurred vision Review of Systems Constitutional Constitutional: Denies chills, Denies fatigue, Denies fever(s) and Denies frequent falls Eyes Eyes: Denies change in vision and Denies loss of vision ENT Ears, Nose, Mouth, and Throat: Reports dizziness, Reports mouth lesions, Reports mouth pain, Reports nasal congestion, Denies neck pain, Reports odynophagia, Denies sore throat and Denies tongue swelling Cardiovascular Cardiovascular: Denies chest pain and Denies dyspnea Respiratory Respiratory: Denies cough and Denies dyspnea Gastrointestinal Gastrointestinal: Denies abdominal pain, Denies heartburn and Reports odynophagia Musculoskeletal Musculoskeletal: Denies neck pain Neurologic Neurologic: Denies confusion, Reports dizziness, Denies frequent falls and Denies loss of vision Psychiatric Psychiatric: Denies confusion Endocrine Endocrine: Denies fatigue Allergic/Immunologic Allergic/Immunologic: Denies tongue swelling PFSH All Active Problems (Updated 02/22/25 @ 16:35 by Ferdinand Soto DO) Hypotension (Acute) Pharyngitis (Acute) Weight loss (Acute) Dehydration (Acute) SCC (squamous cell carcinoma), face (Acute) Acute prerenal azotemia (Acute) Medical History (Updated 02/22/25 @ 16:35 by Ferdinand Soto DO) Skin cancer Surgical History (Updated 02/22/25 @ 16:35 by Ferdinand Soto DO) H/O left radical nephrectomy Social History Smoking/Tobacco Use Status: Former Tobacco Use Tobacco: How many years used: 4 Smoking risk assessment performed?: Yes Alcohol Intake: current Alcohol Intake frequency: 0-2 drinks per day Alcohol type: hard liquor Substance use type: does not use Details: Sometimes 3 with guests Housing: house Do you feel safe at home: Yes Do you feel safe in your relationship?: Yes Exam Const General: cooperative, healthy appearing, comfortable and no acute distress Nutritional Appearance: average body habitus Orientation: alert, awake and oriented x3 HENMT Face and sinus: abrasion (radiation burn right upper lip/philtrum and nose) on the right Mouth: oral mucosae normal, tongue normal and moist mucous membranes Resp Effort & Inspection: normal respiratory effort and not labored Cardio Rate: regular rate GI Inspection: normal to inspection and scar (periumbilical - well healed) Palpation: soft Skin Other: radiation to right face Neuro General: patient alert, patient awake and patient oriented x3 Cranial Nerves: CN's II-XI intact bilaterally Cognition: normal cognition Speech: speech normal Results Last Vital Signs Temp 36.9 C 02/22/25 15:41 Pulse 74 02/22/25 15:41 Resp 14 02/22/25 15:41 BP 101/48 L 02/22/25 15:41 Pulse Ox 100 02/22/25 15:41 Labs 02/22/25 06:00 02/22/25 06:00 Labs: Laboratory Results - last 24 hr 02/21/25 02/21/25 02/21/25 16:09 18:05 19:19 WBC RBC Hgb Hct MCV MCH MCHC RDW Plt Count MPV Immature Gran % Neutrophils % Lymphocytes % Monocytes % Eosinophils % Basophils % Nucleated RBC % Absolute Neutrophils Absolute Lymphocytes Absolute Monocytes Absolute Eosinophils Absolute Basophils RBC Morphology Sodium Potassium Chloride Carbon Dioxide Anion Gap BUN Creatinine Est GFR (CKD-EPI 2020) Glucose Calcium Total Bilirubin AST ALT Alkaline Phosphatase Troponin I 44 49 Total Protein Albumin Urine Color Yellow Urine Clarity Clear Urine pH 5.5 Ur Specific [place] 1.020 Urine Protein Trace Urine Ketones Negative Urine Blood Negative Urine Nitrite Negative Urine Bilirubin Small H Urine Urobilinogen 0.2 Ur Leukocyte Esterase Negative Urine Glucose Negative 02/22/25 06:00 WBC 5.28 RBC 3.34 L Hgb 10.9 L Hct 32.2 L MCV 96 H MCH 32.6 MCHC 33.9 RDW 14.8 H Plt Count 95 L MPV 9.6 Immature Gran % 0.2 Neutrophils % 27.6 Lymphocytes % 62.3 Monocytes % 8.0 Eosinophils % 1.7 Basophils % 0.2 Nucleated RBC % 0.0 Absolute Neutrophils 1.46 Absolute Lymphocytes 3.29 Absolute Monocytes 0.42 Absolute Eosinophils 0.09 Absolute Basophils 0.01 RBC Morphology Normal Sodium 141 Potassium 3.9 Chloride 104 Carbon Dioxide 28.8 Anion Gap 8.2 BUN 72 H Creatinine 1.1 H Est GFR (CKD-EPI 2020) 48.63 Glucose 91 Calcium 8.3 L Total Bilirubin 0.7 AST 31 ALT 21 Alkaline Phosphatase 67 Troponin I Total Protein 6.1 L Albumin 3.3 L Urine Color Urine Clarity Urine pH Ur Specific [place] Urine Protein Urine Ketones Urine Blood Urine Nitrite Urine Bilirubin Urine Urobilinogen Ur Leukocyte Esterase Urine Glucose
[2025-02-22] MEDS: Enoxaparin 40 MG/0.4 ML SYR SC (17:51)
[2025-02-22 19:00] VITALS: BP 114/52; PULSE 84; RESP 18; TEMP 36; O2SAT 99
[2025-02-22] MEDS: Protein Nutritional Supplement 16 GM 1 OUNCE PACKET PO (19:16)
[2025-02-22] MEDS: Patch Removal 1 EACH TP (20:24)
[2025-02-23] MEDS: Magic Mouthwash 119 ML BTL MM ×8 (00:28→23:15)
[2025-02-23] MEDS: HYDROmorphone 2 MG/ML SYR IVP ×3 (00:31→13:49)
[2025-02-23] MEDS: Normal Saline 1,000 ML 175 ML IV ×3 (01:23→15:05)
[2025-02-23 06:46] LABS: Abs Immature Grans 0.02 10^3/uL (0.0-0.06); HCT 26.5 % (36.0-46.0); HGB 8.8 g/dL (11.2-15.7); Immature Grans % 0.5 %; MCH 32.8 pg (27.0-33.0); MCHC 33.2 % (32.0-36.0); MCV 99 fL (80-95); MPV 10.0 fL (8.0-11.0); RBC 2.68 10^6/uL (3.93-5.22); RDW 15.2 % (11.7-14.6); RDW-SD 54.6 fL; WBC 3.90 10^3/uL (4.4-10.8)
[2025-02-23] MEDS: Normal Saline Flush 10 ML SYR IVP ×3 (07:06→21:19)
[2025-02-23 07:08] LABS: ALT 18 U/L (14-59); AST 26 U/L (15-37); Albumin 2.5 g/dL (3.4-5.0); Alkaline Phosphatase 53 U/L (46-116); Anion Gap 5.5 mmol/L (3-11); BUN 43 mg/dL (7-18); Bilirubin, Total 0.6 mg/dL (0.2-1.0); CO2 26.5 mmol/L (21.0-32.0); Calcium 7.8 mg/dL (8.5-10.1); Chloride 112 mmol/L (98-107); Estimated GFR 83.65 (mL/min/1.73m2); Glucose 86 mg/dL (74-106); Potassium 3.9 mmol/L (3.5-5.1); Sodium 144 mmol/L (136-145); Total Protein 5.0 g/dL (6.4-8.2)
[2025-02-23 07:16] LABS: Platelet Count 67 10^3/uL (130-400); RBC Morphology Normal
--- NOTE | 2025-02-23 09:02 | W.PM.PROGNOT ---
Date of Service Date of service: 02/23/25 Time of Service: 09:02 Assessment and Plan Assessment and plan (1) Pharyngitis: Status: Acute Assessment and plan: Radiation lambert to face and oral mucosa, being treated with magic mouth wash - good pain control, tolerating oral intake. AVIS resolved - Continue Magic mouthwash - Continue as needed oral pain medications - Oral hydration - Nutritional supplements - Again discussed with patient and daughter at bedside. No need for feeding tube at this time as patient is improving. Remains an option in the future if necessary - Okay to discharge from general surgery standpoint (2) Dehydration: Status: Acute Assessment and plan: With AVIS. Resolved. - Continue oral hydration and nutrition (3) Weight loss: Status: Acute Subjective Subjective Interval history since last seen: Cr normal today. Tolerating oral intake with help of magic mouthwash. Has good family support Exam Const General: cooperative, comfortable and no acute distress Orientation: alert, awake and oriented x3 [facility] Face images:  1. radiation burn Mouth: oral mucosae normal and tongue normal Resp Effort & Inspection: normal respiratory effort Cardio Rate: regular rate Skin Other: radiation burn to face with ointment Neuro General: patient alert, patient awake, patient oriented x3, no focal motor deficits and CN's II-XI intact bilaterally Cognition: normal cognition Speech: speech normal Objective Last Vital Signs Temp 36.0 C L 02/22/25 19:00 Pulse 84 02/22/25 19:00 Resp 18 02/22/25 19:00 BP 114/52 L 02/22/25 19:00 Pulse Ox 99 02/22/25 19:00 Laboratory Results - last 24 hr 02/23/25 06:26 WBC 3.90 L RBC 2.68 L Hgb 8.8 L D Hct 26.5 L MCV 99 H MCH 32.8 MCHC 33.2 RDW 15.2 H Plt Count 67 L MPV 10.0 Immature Gran % 0.5 Neutrophils % 28.6 Lymphocytes % 59.0 Monocytes % 9.5 Eosinophils % 2.1 Basophils % 0.3 Nucleated RBC % 0.0 Absolute Neutrophils 1.12 L Absolute Lymphocytes 2.30 Absolute Monocytes 0.37 Absolute Eosinophils 0.08 Absolute Basophils 0.01 RBC Morphology Normal Sodium 144 Potassium 3.9 Chloride 112 H Carbon Dioxide 26.5 Anion Gap 5.5 BUN 43 H Creatinine 0.7 Est GFR (CKD-EPI 2020) 83.65 Glucose 86 Calcium 7.8 L Total Bilirubin 0.6 AST 26 ALT 18 Alkaline Phosphatase 53 Total Protein 5.0 L Albumin 2.5 L PAWSS Have you Been Recently Intoxicated or Drunk Within the Last 30 days?: No Have you Ever Experienced Previous Episodes of Alcohol Withdrawal?: No Have you ever Experienced Withdrawal Seizures?: No Have you ever Experienced Delirium Tremens(DT)s?: No Have you ever undergone Alcohol Rehabilitation Treatment (i.e, inpt ot outpatient treatment programs)?: No Have you ever Experienced Blackouts?: No Have you ever Combined Alcohol with other Downers within the last 90 days?: No Have you ever Combined Alcohol with any other Substance of Abuse during the last 90 days?: No Positive Blood Alcohol level on Presentation? [PCS.BAL]: No Evidence of Increased Autonomic Activity (i.e. HR>120, tremor, sweating, agitation, nausea)?: No Result: 0 Time Spent with Patient Time Spent with Patient: 25-34 minutes Time was spent: preparing to see the patient(eg.review tests), referring, communicating with other health critical care transport nurse, counseling the patient and care coordination
[2025-02-23 09:05] VITALS: BP 118/58; PULSE 82; RESP 18; TEMP 36.4; O2SAT 99
[2025-02-23] MEDS: Lidocaine 5% Patch 1 PATCH TP (09:16)
[2025-02-23] MEDS: Protein Nutritional Supplement 16 GM 1 OUNCE PACKET PO (09:16)
[2025-02-23] MEDS: Silver sulfaDIAZINE 1% 25 GM TUBE TP ×2 (09:16→21:49)
[2025-02-23] MEDS: Acetaminophen 325 MG TAB 650 MG PO ×2 (09:20→15:35)
--- NOTE | 2025-02-23 09:28 | PT.INTREAT ---
PT Notes Visit Reasons: Severe Dehydration Physical Therapy Inpatient Treatment Note Date: 02/23/2025 Precautions: Fall. Standard. Activity as tolerated. Subjective: Needed medication from Nurse Hall for her pain in mouth and face. Was cooperative with both sessions despite ongoing discomfort. Taking in liquids via mouth makes pain worse but managed to take Tylenol given by Nurse Hall. Objective: General Observation: Squamous cell carcinoma of lip and face covered with topical medication Mental Status: Alert and oriented as to person, place, time, and purpose. Able to pay attention, focus, and respond appropriately. Pain: Mouth pain at at 5-6/10 Vital Signs:Closely monitored by nursing staff Bed Mobility/Transfers: Rolling independent Supine to sit independent Sit to supine independent Sit to stand stand by assist with FWW Stand to sit stand by assist with FWW Bed to toilet stand by assist with FWW Toilet to bed stand by assist with FWW Bed to reclining chair stand by assist with FWW Gait: Covered a distance of 150 feet + 150 feet using front wheeled walker with reciprocal heel-toe gait pattern with age-related reduction in gait speed, 250 feet in the morning. Verbalized fatigue at end of activity with request for seated rest. Stairs: Negotiated 6 x 4 -inch steps and 4 x 6-inch steps while holding onto B rails with stand by assist. Mild shortness of breath resolved with rest. THERA EX: Guided patient with safe and corect performance of seated exercises: Deep breathing exercises x 5 Seated marches x 10 Quads sets x 10, 5 sh Ankle DF/PF x 10 Deep breathing exercises x 5 Balance: Static Sitting: Normal Dynamic Sitting: Normal Static Standing: Fair Dynamic Standing: Fair Assessment: Patient's mobility level has been improving but she remains in need of front-wheeled walker which has been a decline from prior level. Will determine readiness to progress to unasssisted ambulation now that her oral intake is slowly improving. Plan of Care/Treatment Plan: 1-2x/day, 7 days/week x 1 week. Plan of care has been reviewed with the [employer] providing the service under Physical Therapy direction. Initiate Physical Therapy intervention for pain management as needed, strengthening, bed mobility, transfers, gait, stairs, balance training, and use of assistive device. DISCHARGE RECOMMENDATIONS: PT TREATMENT CODE/TIME: Session 1--55170 x 15 for 1 unit, 90585 x 13 minutes for 1 unit (9:28-9:56). Session 2--05485 x 25 minutes for 2 units (15:28-15:53).
--- NOTE | 2025-02-23 11:29 | W.PM.PROGNOT ---
Date of Service Date of service: 02/23/25 Time of Service: 11:29 Assessment and Plan Assessment and plan (1) Acute prerenal azotemia: Status: Acute Assessment and plan: Will continue with fairly aggressive rehydration normal saline at 175. 02/22/25 renal fx has improved, cw rehydration 02/23/25 Renal fx continues to improve. Single kidney noted. CW IVF NS@175 (2) Dehydration: Status: Acute Assessment and plan: As above (3) SCC (squamous cell carcinoma), face: Status: Acute Assessment and plan: Patient has completed her treatment regimen but unfortunately has significant radiation side effects. (4) Weight loss: Status: Acute Assessment and plan: Discussed with general surgery in the a.m. alternative means of feeding. 02/22/25 placed a consult to through [employer] and formal consult in [employer]. Awaiting response (Dr Soto listed siebel consultant) 02/23/25 Pt does not want interventions at this time as she is improving (5) Pharyngitis: Status: Acute Assessment and plan: Will continue with Magic mouthwash will add Dilaudid and monitor for improvements. DVT prophylaxis with Lovenox. (6) Hypotension: Status: Acute Assessment and plan: cw ivf and monitor (7) Anemia: Status: Chronic Assessment and plan: pt Hg dropped from 10.9 to 8.8 over last 24 hours. Pt does have an elevated MCV. Consider mixed disorder. Check fe/tibc/b12/folate and recheck cbc in am (8) Thrombocytopenia: Status: Chronic Assessment and plan: Plt's dropped from 113 to 67. HIT panel sent and lovenox held. Orders for SCD/Teds placed in the interim. Subjective Subjective Interval history since last seen: Pt seen and examined in her room. POC d/w KIET Echeverria), bedside nurse, pt and daughter. Pt does not want PEG at this time. Pt did tell me she had a nephrectomy in 08/08 [facility]. Exam Narrative Exam Narrative: HEENT- patient does have approximately 4 x 3 cm lesion on the right side of her face including her lips. She does have significant drying of her mucous membranes. She did have significant erythema in her pharyngeal area. Neck-no lymphadenopathy no JVD or thyromegaly Cardiovascular-regular rate rhythm no murmur rubs or gallops Lungs-clear to auscultation bilaterally with good air exchange Abdomen-soft nontender nondistended Extremities-no sinus clubbing or edema Neurologic-cranial nerves II through XII intact as tested reflexes in upper EXTR normal as tested Psych-alert and oriented x 3 no apparent distress Objective Last Vital Signs Temp 36.4 C L 02/23/25 09:05 Pulse 82 02/23/25 09:05 Resp 18 02/23/25 09:05 BP 118/58 L 02/23/25 09:05 Pulse Ox 99 02/23/25 09:05 Laboratory Results - last 24 hr 02/23/25 06:26 WBC 3.90 L RBC 2.68 L Hgb 8.8 L D Hct 26.5 L MCV 99 H MCH 32.8 MCHC 33.2 RDW 15.2 H Plt Count 67 L MPV 10.0 Immature Gran % 0.5 Neutrophils % 28.6 Lymphocytes % 59.0 Monocytes % 9.5 Eosinophils % 2.1 Basophils % 0.3 Nucleated RBC % 0.0 Absolute Neutrophils 1.12 L Absolute Lymphocytes 2.30 Absolute Monocytes 0.37 Absolute Eosinophils 0.08 Absolute Basophils 0.01 RBC Morphology Normal Sodium 144 Potassium 3.9 Chloride 112 H Carbon Dioxide 26.5 Anion Gap 5.5 BUN 43 H Creatinine 0.7 Est GFR (CKD-EPI 2020) 83.65 Glucose 86 Calcium 7.8 L Total Bilirubin 0.6 AST 26 ALT 18 Alkaline Phosphatase 53 Total Protein 5.0 L Albumin 2.5 L PAWSS Have you Been Recently Intoxicated or Drunk Within the Last 30 days?: No Have you Ever Experienced Previous Episodes of Alcohol Withdrawal?: No Have you ever Experienced Withdrawal Seizures?: No Have you ever Experienced Delirium Tremens(DT)s?: No Have you ever undergone Alcohol Rehabilitation Treatment (i.e, inpt ot outpatient treatment programs)?: No Have you ever Experienced Blackouts?: No Have you ever Combined Alcohol with other Downers within the last 90 days?: No Have you ever Combined Alcohol with any other Substance of Abuse during the last 90 days?: No Positive Blood Alcohol level on Presentation? [PCS.BAL]: No Evidence of Increased Autonomic Activity (i.e. HR>120, tremor, sweating, agitation, nausea)?: No Result: 0 Time Spent with Patient Time Spent with Patient: 35-49 minutes Time was spent: preparing to see the patient(eg.review tests), obtaining and/or reviewing separately otained hiistory, ordering medications,tests, procedures, referring, communicating with other health daycare manager, indepentently interpreting results, counseling the patient and care coordination
--- NOTE | 2025-02-23 12:14 | CMPROGNOTE_ITS ---
Date of service: 02/23/25 Time of Service: 12:45 Care Management Progress Note Progress Note Text Progress Note Text: Celena was sitting up in bed when CM arrived. Celena reported feeling well today and stated that she was able to eat all of her lunch with minimal discomfort. She attributed the reduced pain to the use of Magic Mouthwash prior to eating, which she finds helpful. Celena will have a surgical consult. Per report, Celena refuses a PEG tube. Per PT, HHPT is recommended; however, the patient is currently uncertain about whether she wishes to pursue PT services at this time. Celena expressed a strong desire to return home and voiced concern that being hospi talized might result in losing her status as an established patient at the cancer center. CM clarified that hospitalization does not affect her established patient status with the cancer center. CM will continue to follow. Discharge Potential Discharge Needs: PCP F/U Appt Anticipated Barriers to Discharge: Medical Status Patient/Family Education Needs: Review discharge instructions, discuss Ask Me Three Transportation: Private vehicle Plan: Anticipate Celena will be discharged home once medically ready, PT is recommended. It is recommended she follow up with her community providers and continue per her plan of care. Celena will transport via private vehicle by one of her children. CM will continue to follow. Social Determinants of Health Screening Will the Patient Participate in the Screening?: Declined to provide Do you worry about having a steady place to live?: choose not to answer
[2025-02-23] MEDS: Patch Removal 1 EACH TP (22:56)
[2025-02-24] MEDS: Magic Mouthwash 119 ML BTL MM (00:59)
[2025-02-24] MEDS: Normal Saline Flush 10 ML SYR IVP ×2 (01:07→05:39)
[2025-02-24] MEDS: HYDROmorphone 2 MG/ML SYR IVP ×2 (01:07→05:39)
[2025-02-24 07:23] LABS: Abs Immature Grans 0.05 10^3/uL (0.0-0.06); HCT 26.3 % (36.0-46.0); HGB 8.9 g/dL (11.2-15.7); Immature Grans % 1.2 %; MCH 33.2 pg (27.0-33.0); MCHC 33.8 % (32.0-36.0); MCV 98 fL (80-95); MPV 10.6 fL (8.0-11.0); RBC 2.68 10^6/uL (3.93-5.22); RDW 15.3 % (11.7-14.6); RDW-SD 55.0 fL; WBC 4.15 10^3/uL (4.4-10.8)
[2025-02-24 07:30] VITALS: BP 152/71; PULSE 92; RESP 16; TEMP 36.1; O2SAT 94
[2025-02-24 07:44] LABS: Platelet Count 68 10^3/uL (130-400)
[2025-02-24 07:49] LABS: RBC Morphology Normal
[2025-02-24 08:17] LABS: ALT 18 U/L (14-59); AST 28 U/L (15-37); Albumin 2.4 g/dL (3.4-5.0); Alkaline Phosphatase 55 U/L (46-116); Anion Gap 7.4 mmol/L (3-11); BUN 28 mg/dL (7-18); Bilirubin, Total 0.5 mg/dL (0.2-1.0); CO2 24.6 mmol/L (21.0-32.0); Calcium 8.2 mg/dL (8.5-10.1); Chloride 114 mmol/L (98-107); Estimated GFR 83.65 (mL/min/1.73m2); Glucose 92 mg/dL (74-106); Potassium 4.2 mmol/L (3.5-5.1); Sodium 146 mmol/L (136-145); Total Protein 4.9 g/dL (6.4-8.2)
[2025-02-24 08:24] LABS: Iron 46 ug/dL (50-170); Total Iron Binding Capacity 182 ug/dL (250-450); Transferrin Sat 25 % (15-50)
[2025-02-24 08:45] LABS: Vitamin B12 986 pg/mL (193-986)
[2025-02-24 08:57] LABS: Folate > 20.0 ng/mL (8.6-20.0)
--- NOTE | 2025-02-24 09:05 | PDOC.CMDIS ---
Date of service: 02/24/25 Time of Service: 09:05 LACE Index Scoring Tool Questions: Length of Stay (in days): 3 Was the patient admitted via the E.D.?: Yes E.D. Visits: 3 Answers: Total Score: 9 Risk of Readmission: Low Risk Care Management Discharge Plan Reason for Hospitalization: Severe Dehydration Discharge Plan: Celena will be discharged home today with new PT as recommended by PT. It is recommended she follow up with her community providers, [facility], Palliative care, and continue per her plan of care. Celena will transport via private vehicle by one of her children. Patient/Family Education Needs: Review of discharge instructions, activity, limitations, and plan of care. Discuss ask me three. Services Needed at Discharge: Home Health Care Services
--- NOTE | 2025-02-24 09:07 | DSE_ITS ---
Date of service: 02/24/25 Time of Service: 09:07 DS: Diagnosis Discharge Diagnosis (1) Pharyngitis: Status: Acute (2) Dehydration: Status: Acute (3) Weight loss: Status: Acute Discharge Plan Disposition Patient Disposition: Home W/Home Health Services Condition: Good Discharge Details Reason For Visit: Severe Dehydration Admit Date/Time: 02/21/25 16:38 Admit Provider: Kwaku Aparicio Attending Provider: Kwaku Aparicio Primary Care Provider: Dalila Oh Hospital Course Hospital Course: Patient initially presented to the hospital after experiencing a fall likely secondary to acute prerenal azotemia and AVIS with elevated creatinine and BUN. This was likely in the setting of squama cell carcinoma of the face and difficulty with p.o. intake. Patient had aggressive IV fluid rehydration with improvement of her kidney function. However, this secondarily led to decrease in white blood cells, red blood cells as well as platelets with HIT panel being ordered. However, this occurred less than 24 hours after initiation of heparin, platelet drop was about 50% though did not decrease below 60, therefore very low suspicion for HIT. Patient worked with nutrition was also seen by general surgery and physical therapy and determined to benefit from home health physical therapy and nursing services. Given that patient feels significantly better and her kidney function is back to baseline it was determined that she was stable for discharge home with home health services. Home Meds and New Rx's Prescriptions: Continued lidocaine HCl 2 % solution 1 applic mucous membrane ONCE PRN Patient Comments: SWISH AND SPIT NEEDED, MIX 1:1:1 BENADRYL, MAALOX, AND VISCOUS LIDOCAINE) oxycodone 5 mg tablet 5 mg PO Q6H PRN Patient Comments: TAKE 1 TABLET BY MOUTH EVERY 4 HOURS NEEDED FOR PAIN (ALSO, TAKE STOOL SOFTENER EVERY DAY TO KEEP STOOLS SOFT (AND AVOID CONSTIPTATION).) hydrocodone-acetaminophen 5-325 mg tablet 1 tab PO Q6H PRN Patient Comments: TAKE ONE TO TWO TABLETS BY MOUTH EVERY 6 HOURS NEEDED FOR PAIN FOR UP TO 4 DAYS silver sulfadiazine 1 % cream 1 applic TOPICAL BID Patient Comments: APPLY TO AFFECTED AREA(S) TWO TIMES A DAY ON OPEN AREA OF SKIN pravastatin 40 mg tablet 40 mg PO DAILY valsartan-hydrochlorothiazide 320-25 mg tablet 1 tab PO DAILY Discharge Instructions Stand Alone Forms: Nursing Discharge Form Referrals: Dalila Oh [Primary Care Provider, Medicine] Referral Note: post-hospitalization follow-up. Please call your pcp office to schedule a follow up Activity:: Activity as Tolerated Equipment/Supplies:: No Equipment Needed Diet:: As Tolerated Discharge Orders Discharge Orders: Discharge Order (Routine); Ordered 02/24/25 Ordered By: Fahad Coreas Discharge Data Discharge Date/Time-TO BE ENTERED AT DEPARTURE: 02/24/25 10:39 DS: Summary Time Spent with Patient providing and/or coordinating discharge services: Greater than 30 minutes Status at Discharge Functional status at discharge: independent ambulation Overall status at discharge: patient is back to baseline Mental Status: mental status grossly normal Speech and Movement: speech and movement normal Mood: congruent mood Affect: normal affect Exam Narrative Exam Narrative: Well-appearing older female sitting up in the bed in no acute distress, ANO x 4, heart regular rhythm, lungs good auscultation bilaterally, abdomen soft, nontender, nondistended, large roughly 4 x 3 cm lesion on the right side of the face including the lips and nare Psych Mental Status: mental status grossly normal Speech and Movement: speech and movement normal Mood: congruent mood Affect: normal affect DS: Data Vitals/I&O Vitals and I&O: Vital Signs Temperature 97.0 F L 02/24/25 07:30 Temperature Source Temporal Artery Scan 02/24/25 07:30 Pulse 92 H 02/24/25 07:30 Pulse 82 02/21/25 17:10 Respiratory Rate 16 02/24/25 07:30 Respiratory Effort Normal, Non-Labored 02/21/25 17:52 Respiratory Depth Normal 02/21/25 17:52 Respiratory Pattern Normal 02/21/25 17:52 Blood Pressure 152/71 H 02/24/25 07:30 Blood Pressure Mean 98 02/24/25 07:30 Pulse Oximetry 94 02/24/25 07:30 Oxygen Delivery Method Room Air 02/24/25 07:30 Oxygen Flow Rate 0 02/24/25 07:30 Pain Level 0 02/24/25 07:57 Intake & Output 02/23/25 02/24/25 02/24/25 17:59 05:59 17:59 Intake Total 3580 / 3580 30 / 3610 1000 / 1000 Output Total 500 / 500 400 / 900 Balance 3080 / 3080 -370 / 2710 1000 / 1000 Weight 123 lb 14.4 oz 130 lb 1.164 oz Intake: IV 1999 1000 / 1000 Oral 1580 / 1580 Output: Urine 500 / 500 400 / 900 Other: Urine Color Light Afshan Light Afshan Urine Appearance Clear Clear Stool Size Smear Stool Characteristics Soft Data Completed and Pending Labs on day of discharge: Labs from last 24 hours 02/24/25 02/23/25 06:35 11:00 WBC 4.15 L RBC 2.68 L Hgb 8.9 L Hct 26.3 L MCV 98 H MCH 33.2 H MCHC 33.8 RDW 15.3 H Plt Count 68 L MPV 10.6 Immature Gran % 1.2 Neutrophils % 27.1 Lymphocytes % 61.4 Monocytes % 8.2 Eosinophils % 1.9 Basophils % 0.2 Nucleated RBC % 0.0 Absolute Neutrophils 1.12 L Absolute Lymphocytes 2.55 Absolute Monocytes 0.34 Absolute Eosinophils 0.08 Absolute Basophils 0.01 RBC Morphology Normal Sodium 146 H Potassium 4.2 Chloride 114 H Carbon Dioxide 24.6 Anion Gap 7.4 BUN 28 H Creatinine 0.7 Est GFR (CKD-EPI 2020) 83.65 Glucose 92 Calcium 8.2 L Iron 46 L TIBC 182 L Transferrin % Sat 25 Total Bilirubin 0.5 AST 28 ALT 18 Alkaline Phosphatase 55 Total Protein 4.9 L Albumin 2.4 L Vitamin B12 986 Folate > 20.0 H Hep-Induced Plt Ab Tea Pending Heparin-PF4 Ab Inhibit Pending Heparin-PF4 Ab Interp Pending Heparin-PF4 Ab Comment Pending PFSH All Active Problems (Updated 02/24/25 @ 11:20 by Clover Montoya NP) Palliative care encounter (Acute) Fall (Acute) ACP (advance care planning) (Acute) Impaired instrumental activities of daily living (Acute) Thrombocytopenia (Chronic) Anemia (Chronic) Hypotension (Acute) Pharyngitis (Acute) Weight loss (Acute) Dehydration (Acute) SCC (squamous cell carcinoma), face (Acute) Acute prerenal azotemia (Acute) Medical History Skin cancer Surgical History H/O left radical nephrectomy Social History Smoking/Tobacco Use Status: Former Tobacco Use Tobacco: How many years used: 4 Smoking risk assessment performed?: Yes Alcohol Intake: current Alcohol Intake frequency: 0-2 drinks per day Alcohol type: hard liquor Substance use type: does not use Details: Sometimes 3 with guests Housing: house Do you feel safe at home: Yes Do you feel safe in your relationship?: Yes Time Spent with Patient Time Spent with Patient: <45 minutes Time was spent: preparing to see the patient(eg.review tests), obtaining and/or reviewing separately otained hiistory, ordering medications,tests, procedures, referring, communicating with other health director of home care hospice, indepentently interpreting results, counseling the patient and care coordination
--- NOTE | 2025-02-24 09:17 | PDOC.HHF2F_ITS ---
Home Health Referral Home Health Orders Clinical synopsis of why skilled professionals are needed: AVIS, dehydration, SCC of face Registered Nurse: Check all that apply Instruct on new or changed medication(s)/assess compliance: Ordered Physical Therapist: Check all that apply Increase strength & endurance for safe mobility at home: Ordered To design/establish home maintenance program: Ordered Fall reduction therapy program for patient with history of frequent falls: Ordered Contract Law Specialist: Assist with community resources: Ordered Assist with [facility] care planning: Ordered Encounter Date and Reason: I certify that a FTF encounter for this patient was performed on February 24, 2025 and that such encounter was related to the primary reason the patient requires home health services. The encounter was conducted in the following manner: * By me as the certifying physician, REAL TIME OPERATOR, PA or * By an inpatient physician, REAL TIME OPERATOR or PA during an inpatient stay who communicated findings to me, Certification And Authentication I certify that I composed the above information based on my clinical judgment relating to this patient's medical condition and, if applicable, clinical findings communicated to me by the NPP or inpatient physician who performed the FTF encounter. Name of Provider that will be monitoring home health services: Dalila Oh
--- NOTE | 2025-02-24 10:31 | W.PALLCONSUL ---
Date of service: 02/24/25 Time of Service: 09:00 History of Present Illness Narrative: Ms. 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 - Independent ADLs at baseline, hoping to return home and get back into routine. Oncology: missed f/u during this hospitalization, will present to [facility] on way home to schedule appropriate f/u. completed radiation tx for SCC of nose last friday, s/p radiation and surgical removal; w/curative intent. aware of f/u being qweekly for a time, then qmonthly after; feeling optimistic Pain: oral pain 2/2 radiation SE, has improved since hospitalization; was Rx'd hydrocodone via oncology for pain, she does not recall if it was helpful. aware she has been receiving Dilaudid this hospitalization. would like to try what is home first before making changes - daughter reports she had both hydrocodone and oxycodone in home, w/some med confusion she was potentially taking both medications; daughter's removed oxycodone from home last evening, only hydrocodone in home. they are going to help w/med dispensing in the short term Oral Intake: improved w/improved pain; magic mouthwash helps w/pain/oral sores, however alters taste of food which is partly why she had reduced oral intake; she is optimistic she can hold her oral intake appropriately at this time, including to maintain her hydration; she is aware she was malnourished and dehydrated on arrival - surgical consult recommended no PEG tube, which she agrees w/, her preference would be for no FT as avoidable, however this should be reviewed again Activity: fall prior to hospitalization, d/t fell asleep on couch, was disoriented when woke l/t fall; she feels comfortable w/ind transfers today and feels safe to return home. ACP: aware of previously completed AD, son Adriel listed as HCA w/daughter Christine co-agent, daughter's Rbeann and Rukhsana also important for her to know they have equal say, so far all children have been on the same page and want to honor mom's stated preferences, she has written letters to each of them. - AD enacted when can no longer make own decisions; would want LST as long as able to communicate w/family, be conscious/aware, live w/o incapacitating pain, and take care of self; She would not want CPR or intubation at this time, prefereing a natural ; would not want to be hooked up to machines; does not want to prolong life if a burden to herself or children - hoping to maintain her independence and get back into her home routine Assessment and Plan Assessment and plan (1) Anemia: Status: Chronic Assessment and plan: stable today (2) Pharyngitis: Status: Acute Assessment and plan: w/some improvement in oral intake pain improved w/opioids plan to trial hydrocodone at home, if no impact, to contact PC for Rx of Dilaudid - may consider oxycodone IF they still have some, have daughter's help w/medication education (3) Weight loss: Status: Acute Assessment and plan: surgical consult recommend no PEG tube today, not candidate for NG tube continue oral intake, working on new pattern oral intake preferences, w/Boost unsure if she would ever want a PEG tube, is considering no. will continue to review at f/u visits per nutrition weight loss from 135lbs in January to 116lbs this hospitalization, 14% continue to monitor (4) Dehydration: Status: Acute Assessment and plan: improved w/IVF now w/imporved oral intake continue to monitor (5) SCC (squamous cell carcinoma), face: Status: Acute Assessment and plan: s/p surgical resection s/p radiation, documented 330 rounds(?) f/b [facility], Dr Butts and Dr Vega, will schedule f/u post discharge curative intent (6) Impaired instrumental activities of daily living: Status: Acute Assessment and plan: w/some med confusion most recently; daughters will start helping more continue to review (7) Fall: Status: Acute Assessment and plan: fall prior to hospitalization; continue to monitor, high risk for falls (8) ACP (advance care planning): Status: Acute Assessment and plan: reviewed existing AD, confirmed UTD; her preference would be to have all children on same page, to date this has been true reviewed code status and current preferences, DNR/I, some trial non-invasive of new/treatable conditions, avoid invasive; unsure on FT preferences, okay for repeat IVF and abx if needed; COLST form completed w/verbal consent, pt too tired to sign, original copy given to family, copy put in chart/faxed to DH would not want to prolong life if becomes a burden, to children or self wants to get into her routine and see how she recovers, w/plan to focus on oral intake to avoid dehydration/nutritional decline reviewed oncology treatment plan and monitoring, f/u plans, etc spent 30m w/ACP (9) Palliative care encounter: Status: Acute Assessment and plan: PC will plan to follow outpatient, to schedule at soonest avail, plan for HV or if able to coordinate for same day w/[facility] PPS 60-70% Review of Systems Narrative: as per HPI PFSH All Active Problems (Updated 02/24/25 @ 11:20 by Clover Montoya NP) Palliative care encounter (Acute) Fall (Acute) ACP (advance care planning) (Acute) Impaired instrumental activities of daily living (Acute) Thrombocytopenia (Chronic) Anemia (Chronic) Hypotension (Acute) Pharyngitis (Acute) Weight loss (Acute) Dehydration (Acute) SCC (squamous cell carcinoma), face (Acute) Acute prerenal azotemia (Acute) Medical History Skin cancer Surgical History H/O left radical nephrectomy Social History Smoking/Tobacco Use Status: Former Tobacco Use Tobacco: How many years used: 4 Smoking risk assessment performed?: Yes Alcohol Intake: current Alcohol Intake frequency: 0-2 drinks per day Alcohol type: hard liquor Substance use type: does not use Details: Sometimes 3 with guests Housing: house Do you feel safe at home: Yes Do you feel safe in your relationship?: Yes Exam Narrative Exam Narrative: General: older adult female, in bed initially, transfer to toilet and recliner w/stand by assist; daughter Breann at bedside; fatigue at end of visit, expresses preference to stop and sign documents at later date HEENT: hearing grossly WNL; normocephalic, atraumatic; face w/large roughly 4 x 3 cm lesion on the right side including the lips and nare w/topical ointment, some scant bleeding, covers w/tissue independently Resp: even and unlabored, speaks full sentences w/o SOB, no audible wheeze, no cough Skin: as above, no additional rashes or lesions noted; RUE IV removed : catheter in place Psych: pleasant, cooperative, joking; thought process WNL, attitude WNL; insight/judgment fair to good; Results Last Vital Signs Temp 97.0 F L 02/24/25 07:30 Pulse 92 H 02/24/25 07:30 Resp 16 02/24/25 07:30 BP 152/71 H 02/24/25 07:30 Pulse Ox 94 02/24/25 07:30 Labs 02/24/25 06:35 02/24/25 06:35 Labs: Laboratory Results - last 24 hr 02/24/25 06:35 WBC 4.15 L RBC 2.68 L Hgb 8.9 L Hct 26.3 L MCV 98 H MCH 33.2 H MCHC 33.8 RDW 15.3 H Plt Count 68 L MPV 10.6 Immature Gran % 1.2 Neutrophils % 27.1 Lymphocytes % 61.4 Monocytes % 8.2 Eosinophils % 1.9 Basophils % 0.2 Nucleated RBC % 0.0 Absolute Neutrophils 1.12 L Absolute Lymphocytes 2.55 Absolute Monocytes 0.34 Absolute Eosinophils 0.08 Absolute Basophils 0.01 RBC Morphology Normal Sodium 146 H Potassium 4.2 Chloride 114 H Carbon Dioxide 24.6 Anion Gap 7.4 BUN 28 H Creatinine 0.7 Est GFR (CKD-EPI 2020) 83.65 Glucose 92 Calcium 8.2 L Iron 46 L TIBC 182 L Transferrin % Sat 25 Total Bilirubin 0.5 AST 28 ALT 18 Alkaline Phosphatase 55 Total Protein 4.9 L Albumin 2.4 L Vitamin B12 986 Folate > 20.0 H Time Spent Time Spent with Patient Time Spent(min): 50
[2025-02-25 20:32] LABS: HIT ELISA 0.063 OD (<0.400); HIT Interpretation Negative (Negative)
== END 2025-02-24 10:39 | disposition home health service (06) ==
LOC: ER 16:23 → MS 17:25
PROVIDERS: Admitting Provider Hospitalist; Emergency Provider Emergency Medicine; PCP Nurse Practitioner Family; Responsible Provider Family Medicine; Visit Provider Hospitalist
DX: N17.9 Acute kidney failure, unspecified (principal); T20.09XA Burn of unspecified degree of multiple sites of head, face, and neck, initial encounter; K12.1 Other forms of stomatitis; R63.4 Abnormal weight loss; E86.0 Dehydration; R51.9 Headache, unspecified; Z68.22 Body mass index [BMI] 22.0-22.9, adult; J02.9 Acute pharyngitis, unspecified; Y84.2 Radiological procedure and radiotherapy as the cause of abnormal reaction of the patient, or of later complication, without mention of misadventure at the time of the procedure; D64.9 Anemia, unspecified; D69.6 Thrombocytopenia, unspecified; I95.1 Orthostatic hypotension; R53.1 Weakness; R59.0 Localized enlarged lymph nodes; Z85.828 Personal history of other malignant neoplasm of skin; Z79.899 Other long term (current) drug therapy; W19.XXXA Unspecified fall, initial encounter
CPT/HCPCS: 00123; 36415; 80053; 86022; 93005; 96361; 96365; 96366; 96372; 96375; 96376; 97110; 97162; 97530; 99222; 99231; 99285; J1650; 70450; 72125; 72128; 72131; 81003; 82270; 82607; 82746; 83540; 83550; 83735; 84443; 84484; 85025; 93010; 99232; 99238; G0378; J0131; J1171; J3490

== ENCOUNTER 2025-03-09 11:54 | Outpatient (CLI) | payer MEDICARE, OTHER, SELFPAY ==
[2025-03-09 12:21] LABS: ALT 22 U/L (14-59); AST 33 U/L (15-37); Albumin 3.3 g/dL (3.4-5.0); Alkaline Phosphatase 70 U/L (46-116); Anion Gap 6.6 mmol/L (3-11); BUN 38 mg/dL (7-18); Bilirubin, Total 0.9 mg/dL (0.2-1.0); CO2 31.4 mmol/L (21.0-32.0); Calcium 9.1 mg/dL (8.5-10.1); Chloride 104 mmol/L (98-107); Estimated GFR 43.81 (mL/min/1.73m2); Glucose 84 mg/dL (74-106); Magnesium 2.3 mg/dL (1.8-2.4); Potassium 3.2 mmol/L (3.5-5.1); Sodium 142 mmol/L (136-145); Total Protein 6.5 g/dL (6.4-8.2)
[2025-03-10 10:34] LABS: Prealbumin 12 mg/dL (20-40)
== END 2025-03-09 11:55 | disposition home or self-care (01) ==
LOC: LBO 11:54
PROVIDERS: PCP Nurse Practitioner Family; Visit Provider Preventive Medicine Undersea and Hyperbaric Medicine
DX: D04.30 Carcinoma in situ of skin of unspecified part of face (principal)
CPT/HCPCS: 36415; 80053; 83735; 84134